=== PATIENT | female | born 1935 | race Two or more races ===

== ENCOUNTER → 2016-11-18 | Outpatient (CLI) | payer MEDICARE, OTHER ==
[~2016-11-18] MED LIST: ASPI325T32 PO; ATEN50TA PO; ESOM40CA PO; HYDR-3498 PO; LOSA50TA6 PO; SMV40T PO; TRAM50TA2 PO
--- NOTE | 2016-11-18 15:33 | RADRPT ---
PROCEDURE: XR right knee. CLINICAL INDICATION: Knee pain. TECHNIQUE: AP weightbearing, lateral weightbearing and sunrise views are available for review. COMPARISON: 07/13/2016 FINDINGS: There is a total knee replacement. There is no evidence of loosening of the prosthesis. There is no evidence of hardware failure. The osseous structures are normal in mineralization, architecture and alignment No acute fracture or dislocation is seen.No osseous lesions are identified. The soft tiss ues are unremarkable . IMPRESSION: Unremarkable total knee replacement. RPTAT: [facility] .Raphael Nelson MD, MD Date Time Electronically viewed and signed by .Raphael Nelson MD, MD on 11/18/2016 15:33 .B/
== END | disposition home or self-care (01) ==
LOC: HKI 14:42
PROVIDERS: ATTEND Orthopaedic Surgery
DX: Z09 Encounter for follow-up examination after completed treatment for conditions other than malignant neoplasm (principal); Z96.651 Presence of right artificial knee joint
CPT/HCPCS: 73562; G0463